=== PATIENT | female | born 1970 | race Two or more races ===

== ENCOUNTER 2024-11-30 15:11 | Emergency (ER) | payer OTHER ==
[~2024-11-30] VITALS: Ht 170.2 cm; Wt 77.6 kg
[2024-11-30] MEDS ORDERED: 0.9 % SODIUM CHLORIDE 1,000 ML IV STA (17:13)
[2024-11-30] MEDS ORDERED: ONDANSETRON HCL 2 MG/ML VIAL IV ONE (17:15)
[2024-11-30] MEDS ORDERED: FAMOTIDINE/PF 20 MG/2 ML VIAL IV ONE (17:15)
[2024-11-30] MEDS ORDERED: FAMOTIDINE/PF 20 MG/2 ML VIAL ONE (17:30)
[2024-11-30 17:53] LABS: HEMATOCRIT 37.3 % (36.0-45.00); HEMOGLOBIN 12.7 g/dL (12.0-15.00); MEAN CELL VOLUME 86.3 fL (80.00-100.00); MEAN CORPUSCULAR HEMOGLOBIN 29.3 pg (27.00-32.0); PLATELET COUNT 264 K/uL (150-450); RED BLOOD COUNT 4.32 M/uL (4.00-6.00); RED CELL DISTRIBUTION WIDTH 13.9 % (11.5-14.5)
[2024-11-30 18:28] LABS: ALBUMIN 3.7 gm/dL (3.4-5.0); BILIRUBIN TOTAL 1.43 mg/dL (0.3-1.2); CALCIUM 8.7 mg/dL (8.5-10.1); CREATININE SERUM 0.87 mg/dL (0.55-1.02); GFR 68.37; GLOBULINA 4.1 G/DL (2.4-3.5); POTASSIUM 3.42 mEq/L (3.5-5.1); TOTAL PROTEIN 7.8 gm/dL (6.4-8.2)
[2024-11-30 18:39] LABS: COVID-19 AG NEGATIVE (NEGATIVE)
[2024-11-30 18:48] LABS: INFLUENZA A AG NEGATIVE (NEGATIVE)
[2024-11-30] MEDS ORDERED: ACETAMINOPHEN 500 MG GEL..CAP PO ONE (21:30)
== END 2024-11-30 22:04 | disposition home or self-care (01) ==
LOC: ER 15:12
PROVIDERS: Emergency Medicine
DX: K52.9 Noninfective gastroenteritis and colitis, unspecified (principal); Z20.822 Contact with and (suspected) exposure to COVID-19